=== PATIENT | female | born 1995 | race Asian ===

== ENCOUNTER 2016-08-11 17:06 | Emergency (ER) | payer OTHER ==
[~2016-08-11] VITALS: Ht 152.4 cm; Wt 70.0 kg
[2016-08-11 17:07] VITALS: BP 112/79; PULSE 78; RESP 16; TEMP 97.9; O2SAT 100
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
[2016-08-11] MEDS ORDERED: IBUP800T23 PO (17:39)
[2016-08-11] MEDS ORDERED: ROBA500T PO (17:39)
[2016-08-11] MEDS ORDERED: KETOROLAC TROMETHAMINE 60 MG/2 ML (IM) VIAL IM ONE (17:45)
[2016-08-11] MEDS ORDERED: ORPHENADRINE INJ 60 MG/2 ML AMP IM ONE (17:45)
== END 2016-08-11 18:03 | disposition home or self-care (01) ==
LOC: NEPK 17:06
DX: S46.812A Strain of other muscles, fascia and tendons at shoulder and upper arm level, left arm, initial encounter (principal); Z72.0 Tobacco use; V43.52XA Car driver injured in collision with other type car in traffic accident, initial encounter; Y93.89 Activity, other specified; Y92.410 Unspecified street and highway as the place of occurrence of the external cause; Y99.8 Other external cause status
CPT/HCPCS: 96372; 99284; J1885; J2360

== ENCOUNTER 2016-09-06 18:26 | Emergency (ER) | payer SELFPAY ==
[~2016-09-06] VITALS: Ht 167.6 cm; Wt 68.0 kg
[~2016-09-06 18:26] MED LIST: IBUP800T23 PO; ROBA500T PO
[2016-09-06 18:27] VITALS: BP 129/76; PULSE 92; RESP 20; TEMP 98; O2SAT 99
--- NOTE | 2016-09-06 18:58 | PD ---
Physical Exam Date Seen by Provider: Sep 06, 2016 Time Seen by Provider: 18:57 Narrative 21 yo female that presents to the ED for evaluation of left hand pain. Injury today. Hit a wall. Pain is 8/10. No other injuries. Vitals are stable. Awaiting bed placement. Data Data Last Documented VS Vital Signs Date Time Temp Pulse Resp B/P Pulse Ox O2 Delivery O2 Flow Rate FiO2 09/06/16 18:27 98.0 92 20 129/76 99 Room Air [facility] Medical Record Reviewed: Yes Supervised Visit with RENETTA: Patrick Suarez Sep 06, 2016 18:58
[2016-09-06 21:36] VITALS: BP 130/73; PULSE 112; RESP 16; TEMP 98.4; O2SAT 99
== END 2016-09-06 22:13 | disposition left against medical advice (07) ==
LOC: NED 18:26
DX: M79.642 Pain in left hand (principal); Z53.21 Procedure and treatment not carried out due to patient leaving prior to being seen by health care provider
CPT/HCPCS: 99281

== ENCOUNTER 2016-09-08 18:39 | Emergency (ER) | payer OTHER ==
[~2016-09-08] VITALS: Ht 167.6 cm; Wt 68.0 kg
[2016-09-08 18:42] VITALS: BP 126/86; PULSE 115; RESP 17; TEMP 97.6; O2SAT 98
--- NOTE | 2016-09-08 20:20 | RADRPT ---
EXAM DATE/TIME: 09/08/2016 19:48 [facility] COMPARISON: No previous studies available for comparison. INDICATIONS : Right hand pain, swelling, and bruising near 4th and 5th metacarpals after punching a wall. MEDICAL HISTORY : None. SURGICAL HISTORY : None. ENCOUNTER: Initial ACUITY: 2 days PAIN SCORE: 8/10 LOCATION: Right hand. FINDINGS: Fracture fragment is seen along the dorsal/medial margin of the fifth carpometacarpal joint. I believ e it is off of the hamate although a small concamitant fracture fragment off the base of the fifth me tacarpal is also possible. No subluxations. No other fractures are demonstrated. CONCLUSION: Acute intra-articular fracture at the fifth carpometacarpal joint; the hamate is probably fractured a nd the fifth metacarpal base is possibly fractured. Rey Kelley MD on September 08, 2016 at 20:17 Board Certified Radiologist. This report was verified electronically.
[2016-09-08] MEDS ORDERED: HYDR-3533 PO (20:41)
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
[2016-09-08] MEDS ORDERED: LEVO1TAB PO (20:59)
[2016-09-08] MEDS ORDERED: ACETAMINOPHEN/HYDROcodone 325 MG/5 MG TAB PO ONE (21:00)
== END 2016-09-08 21:25 | disposition home or self-care (01) ==
LOC: NEPD 18:39
DX: S62.91XA Unspecified fracture of right hand, initial encounter for closed fracture (principal); Z87.891 Personal history of nicotine dependence; W22.09XA Striking against other stationary object, initial encounter
CPT/HCPCS: 29125; 73130